=== PATIENT | male | born 1970 | race Asian ===

== ENCOUNTER → 2017-12-27 | Outpatient (CLI) | payer BC, OTHER ==
[~2017-12-27] VITALS: Ht 180.3 cm; Wt 81.6 kg
[~2017-12-27] MED LIST: LIPITOR40 MG PO; LISINOPRIL20 MG PO; NITROGLYCERIN0.4 MG SUBLING; PLAVIX 75 MG TA75 M1 PO; TOPROL XL25 MG PO
--- NOTE | ~2017-12-27 | CATHLAB ---
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 A PINNACLE 4FR Sheath #[id number] sheath was inserted into the RFA^. Coronary angiography was performed using coronary diagnostic catheters. The right coronary system was accessed and visualized with a JR4 catheter. The left coronary system was accessed and visualized with a JL4 catheter. The left ventricle was accessed and visualized with a PIGTAIL catheter. Left ventricular/Aortic Valve gradient assessed via catheter pullback. Hemostasis was obtained with manual pressure following sheath removal without any complications. The patient tolerated the procedure well and there were no complications associated with the procedure. There was no hematoma. Intraoperative Conscious Sedation Sedation start time: Case end Time: [facility] [address] [place] [address] INVASIVE PROCEDURE REPORT Name: LISA SARAH Room #: REG CL [facility]#: [id number] Admission: 12/27/17 Attend Phys: Steve Sams Discharge: Date of : 66 Date of Service: 12/28/17 1029 Report #: [id number] 12.55 Versed 2 mg Fluoro Time: 1.44 minutes Dose: DAP 1481.40 cGycm2 225 mGy Contrast Type and Amount: Omnipaque 45 ml Coronary Angiography The patient's coronary anatomy is right dominant. Diagnostic Cath Left Main Normal origin and caliber bifurcates that anterior descending left circumflex free of high-grade disease LAD Small to moderate caliber vessel which arises from the left main courses in the anterior interventricular sulcus giving rise to first diagonal branches free of high-grade disease. Then continues in the sulcus towards the apex terminated type II vessel is a small string diameter at the apex. The proximal portion there is a prior stent that has only mild irregularities noted. Diagonal 1 Small-caliber vessel free of high-grade disease Circumflex Moderate caliber vessel coursing posteriorly giving us an early marginal branch (small in caliber question on the lateral aspect of the heart free of high-grade disease per the circumflex and continues on giving rise to a larger posterior lateral marginal branch which is free of high-grade disease it then terminates as a posterior wall with artery to the AV node noted. OM1 Small-caliber vessel free of high-grade disease OM2 Moderate caliber vessel as described above free of significant stenosis Right Coronary Small to moderate caliber vessel of normal origin coursing in the AV groove giving rise to 2 small RV marginal branches for then continues posterior to the crux of the heart giving rise to posterior descending artery all of which is free of high-grade disease. The RCA then continues and terminates as a small posterolateral wall branch without significant stenosis R PDA Small-caliber vessel coursing in the posterior interventricular sulcus towards the apex free of high-grade disease Left Ventriculography Left Ventriculography was not performed. Hemodynamics The aortic pressure is 137/91 mmHg with a mean of 84 mmHg. The left ventricular pressure is 157/12 mmHg with a mean of mmHg. The left [facility] [address] [place] [address] INVASIVE PROCEDURE REPORT Name: LISA SARAH Room #: REG [facility] [id number] Admission: 12/27/17 Attend Phys: Steve Sams Discharge: Date of : 66 Date of Service: 12/28/17 1029 Report #: [id number] ventricular end diastolic pressure is 25 mmHg. There was no gradient across the aortic valve upon pullback. Pullback from the left ventricle to the aorta revealed no gradient across the aortic valve. Conclusion 1. Coronary disease, single-vessel, nonobstructive 2. Normally without evidence Recommendations Cardiac Risk Reduction Program Aggressive Medical Therapy <ELECTRONICALLY SIGNED> By: Steve Schmid MD 12/28/17 1029 1029 1029 Steve Schmid MD /INF
[2017-12-27 11:51] VITALS: BP 114/67
[2017-12-27 12:27] LABS: HEMATOCRIT 47.1 % (42.0-52.0); HEMOGLOBIN 16.3 gm/dL (14.0-18.0); MCH 29.1 pg (26.0-34.0); MCHC 34.6 g/dL (28.0-37.0); RBC 5.61 mil/uL (4.50-6.00); RDW 12.7 % (10.5-14.5)
[2017-12-27 12:36] LABS: CALCIUM 9.2 mg/dL (8.5-10.1); CREATININE 0.8 mg/dL (0.7-1.3); POTASSIUM 4.4 mmol/L (3.5-5.1)
== END | disposition home or self-care (01) ==
LOC: CATH 07:13
PROVIDERS: Internal Medicine
DX: I25.10 Atherosclerotic heart disease of native coronary artery without angina pectoris (principal); E78.00 Pure hypercholesterolemia, unspecified; I10 Essential (primary) hypertension; I25.2 Old myocardial infarction; F17.210 Nicotine dependence, cigarettes, uncomplicated; Z95.5 Presence of coronary angioplasty implant and graft; Z79.899 Other long term (current) drug therapy